=== PATIENT | male | born 1980 | race Caucasian/White ===

== ENCOUNTER 2022-11-10 18:14 | Emergency (ER) | payer OTHER ==
[2022-11-10 18:19] VITALS: BMI 27.3
[2022-11-10] MEDS ORDERED: ACETAMINOPHEN 1000 MG/100 ML BAG IVPB ONE (19:49)
[2022-11-10] MEDS ORDERED: ACETAMINOPHEN INJECTION 100 ML IVPB ONE (20:04)
[2022-11-10 20:45] LABS: BASO % 0.3 % (0-2.0); EOS % 0.4 % (0-4.5); HEMATOCRIT 51.1 % (35.4-49); HEMOGLOBIN 17.4 GM/dL (11.7-16.9); LYMPH % 17.6 % (8-40); MCH 32.2 pg (25.7-33.7); MEAN CELL VOLUME 94.6 fl (80-96); MEAN PLT VOLUME 8.9 fl (7.5-11.1); MONO % 8.9 % (3.8-10.2); NEUT % 72.8 % (42.8-82.8); PLATELET COUNT 283 10^3/uL (134-434); RDW 15.2 % (11.9-15.9); WHITE BLOOD COUNT 8.2 K/mm3 (4.0-10.0)
[2022-11-10 20:53] LABS: INR 1.08 (0.83-1.09); PROTHROMBIN TIME (PATIENT) 12.5 SEC (9.7-13.0)
[2022-11-10 20:56] LABS: ACTIVATED PTT 28.8 SECONDS (25.2-36.5)
[2022-11-10 21:07] LABS: POTASSIUM 4.6 mmol/L (3.5-5.1)
[2022-11-10] MEDS ORDERED: morphine CARPU-JECT 4 MG/1 ML DISP.SYRIN IVPUSH ONE (21:08)
[2022-11-10 21:10] LABS: CALCIUM 8.9 mg/dL (8.5-10.1)
[2022-11-10 21:11] LABS: BLOOD UREA NITROGEN 15.8 mg/dL (7-18)
[2022-11-10 21:14] LABS: CREATININE 0.9 mg/dL (0.55-1.3)
[2022-11-10 21:15] LABS: TOT PROT 8.2 g/dl (6.4-8.2)
[2022-11-10 21:16] LABS: BILIRUBIN,TOTAL 0.5 mg/dL (0.2-1)
[2022-11-10] MEDS ORDERED: morphine SULFATE 4 MG/ML VIAL ONE (21:22)
[2022-11-10 23:39] LABS: PH,URINE 6.5 (5.0-8.0); URINE APPEARANCE CLEAR; URINE BILIRUBIN NEGATIVE (NEGATIVE); URINE COLOR YELLOW; URINE GLUCOSE (UA) NEGATIVE (NEGATIVE); URINE KETONE TRACE (NEGATIVE); URINE NITRITE NEGATIVE (NEGATIVE); URINE PROTEIN NEGATIVE (NEGATIVE)
[2022-11-10 23:42] LABS: URINE LEUK ESTERASE NEGATIVE (NEGATIVE)
[2022-11-11 02:21] VITALS: BP 102/66; PULSE 56; TEMP 98.8
[2022-11-11] MEDS ORDERED: morphine CARPU-JECT 4 MG/1 ML DISP.SYRIN IVPUSH ONE (02:46)
[2022-11-11] MEDS ORDERED: morphine SULFATE 4 MG/ML VIAL ONE (02:53)
[2022-11-11 03:13] VITALS: RESP 16
== END 2022-11-11 03:33 | disposition short-term general hospital (02) ==
LOC: JER 18:14
PROC: 3E033NZ Introduction of Analgesics, Hypnotics, Sedatives into Peripheral Vein, Percutaneous Approach (ICD-10-PCS; principal; 2022-11-10)
PROC: 3E033GC Introduction of Other Therapeutic Substance into Peripheral Vein, Percutaneous Approach (ICD-10-PCS; 2022-11-10)
PROC: 3E033NZ Introduction of Analgesics, Hypnotics, Sedatives into Peripheral Vein, Percutaneous Approach (ICD-10-PCS; 2022-11-11)
DX: S22.078A Other fracture of T9-T10 vertebra, initial encounter for closed fracture (principal); V03.10XA Pedestrian on foot injured in collision with car, pick-up truck or van in traffic accident, initial encounter
CPT/HCPCS: 36415; 70450-TC; 71260-TC; 72125-TC; 72128-TC; 72131-TC; 72170-TC-FY; 73090-TC-LT-FY; 73110-TC-LT-FY; 73130-TC-LT-FY; 73502-TC-LT-FY; 73552-TC-LT-FY; 73562-TC-LT-FY; 74177-TC; 80053; 81003; 85025; 85610; 85730; 86850; 86900; 86901; 87086; 93005; 93010; 99285-25; Q9967